=== PATIENT | female | born 1960 | race Caucasian/White ===

== ENCOUNTER 2018-03-20 15:37 | Outpatient (CLI) | END 2018-03-20 15:38 | disposition home or self-care (01) | LOC: RHC-LAB 15:37 | PROVIDERS: ATTEND Nurse Practitioner Family | DX: R35.0 Frequency of micturition (principal) | CPT/HCPCS: 81001; 87086 ==

== ENCOUNTER 2018-04-03 16:30 | Outpatient (CLI) | END 2018-04-03 16:31 | disposition home or self-care (01) | LOC: RHC-LAB 16:30 | PROVIDERS: ATTEND Nurse Practitioner Family | DX: Z09 Encounter for follow-up examination after completed treatment for conditions other than malignant neoplasm (principal); Z87.448 Personal history of other diseases of urinary system | CPT/HCPCS: 81001 ==